=== PATIENT | female | born 1950 | race Caucasian/White ===

== ENCOUNTER 2017-06-03 08:30 | Emergency (ER) | payer OTHER, MEDICARE ==
[~2017-06-03] VITALS: Ht 175.3 cm; Wt 77.3 kg
[2017-06-03 08:33] VITALS: TEMP 36.4; Ht 175.3 cm; Wt 77.3 kg
[2017-06-03] MEDS ORDERED: IBUPROFEN 600 MG TAB PO STA (08:45)
--- NOTE | 2017-06-03 08:51 | EMERGENCY ROOM VISIT NOTE ---
History Report prepared by Ely: Marybeth Lindsey Under the Supervision of: Dr. Logan Le M.D. First contact with patient: 08:38 Chief Complaint: LEG PAIN,LEG INJURY Stated Complaint: PAIN IN RIGHT LEG History of Present Illness The patient is a 67 year old female who presents to the Emergency Room with complaints of persistent right leg pain that worsened today. She currently rates her discomfort as a 4/10 in severity. The patient states that she has a history of compressed discs and arthritis. She states that she has had problems with her right hip and right leg in the past. The patient states that this morning she woke up with increased pain in her right hip down her right leg. She states that she has noticed pain in her right shoulder down her right back. The patient states that she has been treating her discomfort with ibuprofen. The patient states that over the past four days she has been bending over and picking up her 15 month old granddaughter. She denies any weakness to her extremities. The patient just states that she has noticed difficulty supporting herself with her right leg. She denies following with an ortho-spine surgeon for her history. Source of History: patient Onset: today Position: leg (right) Symptom Intensity: 4/10 Timing: other (persistent) Modifying Factors (Relieving): ibuprofen Note: Associated Symptoms: right shoulder pain, right hip pain Review of Systems See HPI for pertinent positives & negatives. A total of 10 systems reviewed and were otherwise negative. Past Medical & Surgical Medical Problems: (1) Arthritis Surgical Problems: (1) H/O dilation and curettage (2) S/P tonsillectomy Family History Heart disease Social History Smoking Status: Never Smoker Smokeless Tobacco Use: No Alcohol Use: none Marital Status: Housing Status: lives with significant other Occupation Status: retired Current/Historical Medications Scheduled Ascorbic Acid (Vitamin C), 1 TAB PO BID Aspirin (Aspirin Ec), 81 MG PO DAILY Calcium Carbonate-Vitamin D (Calcium), 1 TAB PO DAILY Prednisone (Prednisone Tab), 0 PO DAILY Simvastatin (Zocor), 20 MG PO DAILY Scheduled PRN Fexofenadine Hcl (Esthela Allergy), 1 TAB PO DAILY PRN for Seasonal Allergies Allergies Coded Allergies: Sulfa Antibiotics (Unverified Adverse Reaction, Intermediate, ALL OVER BODY RASH, 06/03/17) Nitrofurantoin (Unverified Adverse Reaction, Unknown, UNKNOWN, 06/03/17) Physical Exam Vital Signs Date Time Temp Pulse Resp B/P (MAP) Pulse Ox O2 Delivery O2 Flow Rate FiO2 06/03/17 10:24 76 20 139/70 100 06/03/17 08:33 36.4 91 16 147/81 98 Room Air Physical Exam GENERAL: Patient is a healthy-appearing well-nourished female HEAD: Normocephalic atraumatic EYES: Ocular movements intact pupils equal and react to light OROPHARYNX mucous membranes are moist no exudates present no erythema or edema present NECK: Supple no nuchal rigidity CHEST: Good equal expansion LUNGS: Clear and equal to auscultation CARDIAC: Normal S1 and S2 ABDOMEN: Soft nontender no guarding BACK: No CVA tenderness EXTREMITIES: Full range of motion of right shoulder, right elbow, right wrist, right hip, right knee, and right ankle. Strength is 5/5 in both extremities. NEURO: Patient is following commands and answering questions appropriately. Alert and oriented x3 Cranial Nerves 2-12 grossly intact Medical Decision & Procedures ER Provider Diagnostic Interpretation: Radiology results as stated below per my review and radiologist interpretation: THORACIC SPINE WITHOUT CLINICAL HISTORY: 67 years-old Female presenting with Pt c/o Rt hip pain. TECHNIQUE: Multidetector CT of the thoracic spine was performed without the use of intravenous contrast. IV contrast: None. A dose lowering technique was used consistent with the principles of ALARA (as low as reasonably achievable). COMPARISON: None. CT DOSE (mGy.cm): The estimated cumulative dose is 2000 1443.20 inclusive of the cervical and lumbar spine.. FINDINGS: Prenatal Teacher topogram: Unremarkable. Slightly exaggerated thoracic arthrosis, although vertebral bodies maintain normal height and alignment. Intervertebral disc spaces preserved. Mild multilevel degenerative change. No significant osseous neural foraminal narrowing. No osseous spinal canal narrowing. Mild dextrocurvature of the thoracic spine. No acute osseous injury is evident. Paraspinal soft tissues within normal limits. Dependent atelectasis in the lungs. Atherosclerosis. IMPRESSION: Multilevel degenerative changes without significant osseous neural foraminal or spinal canal stenosis. Electronically signed by: Deyvi Ochoa M.D. 06/03/2017 9:31 AM Dictated Date/Time: 06/03/2017 9:28 AM LUMBAR SPINE WITHOUT CLINICAL HISTORY: 67 years-old Female presenting with Pt c/o Rt sided shoulder and hip pain. TECHNIQUE: Multidetector CT of the lumbar spine was performed without the use of intravenous contrast. IV contrast: None. A dose lowering technique was used consistent with the principles of ALARA (as low as reasonably achievable). COMPARISON: None. CT DOSE (mGy.cm): The estimated cumulative dose is 2443.[address] of the cervical and thoracic spine. FINDINGS: Prenatal Teacher topogram: Unremarkable. 8 mm of grade 1 anterolisthesis of L3 on L4, likely degenerative in etiology. Vertebral bodies otherwise maintain normal height and alignment. Intervertebral disc heights preserved. Mild disc bulges noted from L2-3 through L4-5 with the greatest degree of spinal canal stenosis resulting at L3-4. There is also significant facet hypertrophy and ligamentum flavum noted at this level, which contributes to spinal canal stenosis at L3-4. Facet arthropathy noted diffusely in the lower lumbar spine. Despite these degenerative changes only mild neural foraminal narrowing on the right at L4-5 is apparent. Transitional lumbosacral anatomy on the left at L5. Degenerative changes of the bilateral sacroiliac joints. Bone island suggested in the right ilium. Evidence of osteopenia with the L1 vertebral body demonstrating a density of approximate 90 Hounsfield units. Paraspinal soft tissues within normal limits. Atherosclerosis noted. IMPRESSION: 1. Multilevel degenerative changes including 8 mm of grade 1 anterolisthesis of L3 on L4. Spinal canal stenosis results at L3-4. Mild right neural foraminal narrowing at L4-5. Additional changes as above. 2. Osteopenia. Electronically signed by: Deyvi Ochoa M.D. 06/03/2017 9:36 AM Dictated Date/Time: 06/03/2017 9:[address] OF THE CERVICAL SPINE WITHOUT CONTRAST CLINICAL HISTORY: Right shoulder pain. COMPARISON STUDY: No previous studies for comparison. TECHNIQUE: Helical axial images of the cervical spine were obtained without IV contrast. Sagittal and coronal reconstructions were viewed. A dose lowering technique was utilized adhering to the principles of ALARA. FINDINGS: Alignment of the cervical spine is anatomic. Vertebral body heights are maintained. There is no fracture or suspicious lesion within the cervical spine by CT. There is no prevertebral edema. Craniocervical junction is intact. Severe multilevel facet arthrosis is present. There is mild multilevel endplate osteophytosis of the cervical spine. Central canal and neural foramen are suboptimally assessed by CT. However, the central canal appears grossly patent. IMPRESSION: 1. No acute cervical spine fracture or subluxation. 2. Severe multilevel facet arthrosis and mild multilevel degenerative disc disease of the cervical spine. Suboptimal evaluation of the central canal and neural foramen given CT technique. However, no evidence for significant central canal stenosis. Suspected multilevel neural foraminal stenosis predominantly due to facet arthrosis. Electronically signed by: Obi Jenkins M.D. 06/03/2017 9:36 AM Dictated Date/Time: 06/03/2017 9:32 AM Medications Administered Medications (Trade) Dose Ordered Sig/Myia Route Start Time Stop Time Status Last Admin Dose Admin Prednisone (PredniSONE TAB) 60 mg NOW STAT PO 06/03/17 08:45 06/03/17 08:48 DC 06/03/17 09:02 60 MG Ibuprofen (Motrin Tab) 600 mg NOW STAT PO 06/03/17 08:45 06/03/17 08:48 DC 06/03/17 09:02 600 MG ED Course 0841: Past medical records reviewed. The patient was evaluated in room B10. A complete history and physical examination was performed. 0845: Ordered Ibuprofen 600 mg PO, Prednisone 60 mg PO. 0945: I reevaluated the patient and she is resting. I discussed the exam findings with her and I discussed the treatment plan. She verbalized complete understanding and agreement. She is ready to go home shortly. Medical Decision Differential diagnosis: Etiologies such as fracture, dislocation, neurovascular compromise, compartment syndrome, soft tissue injury, as well as others were entertained. This is a 67-year-old female who presents emergency department complaining of right shoulder and right hip pain. Patient was given prednisone in the emergency department. The patient does have a history of this however not to this severity. She is able to walk on her tiptoes as well as her heels and has not lost control of her bowel or bladder. The patient was also given ibuprofen in the emergency department. based on the patient's CAT scans I do feel that the patient is most likely suffered from spinal stenosis. She does admit to watching her granddaughter and was doing a large amount of heavy twisting and lifting. Based on these findings as well as the CAT scan I do believe that the patient can be safely discharged home. Patient and were in agreement with the treatment plan to follow-up with orthopedics. Medication Reconcilliation Current Medication List: was personally reviewed by me Blood Pressure Screening Patient's blood pressure: Elevated blood pressure Blood pressure disposition: Referred to PCP Impression Primary Impression: Shoulder pain, right Additional Impression: Leg pain, right Scribe Attestation The scribe's documentation has been prepared under my direction and personally reviewed by me in its entirety. I confirm that the note above accurately reflects all work, treatment, procedures, and medical decision making performed by me. Departure Information Dispostion Home / Self-Care Prescriptions Prednisone (Prednisone Tab) 20 Mg Tab 0 PO DAILY, #7 TAB 2 TABS DAILY FOR 2 DAYS, THEN 1 TAB DAILY FOR 2 DAYS, THEN 1/2 TAB DAILY FOR 2 DAYS. Prov: Logan Le MD 06/03/17 Referrals Ginger Burton M.D. (PCP) Jermaine Ballard, DO Forms HOME CARE DOCUMENTATION FORM, IMPORTANT VISIT INFORMATION, School Instructions, Work Instructions Patient Instructions Basics Back Healthy Spine, ED Exercises Lumbar Muscles, MISS About, MISS Tx, My [facility], XLIF About, XLIF Tx Additional Instructions Follow up with DR Ballard's office You were found to have an elevated blood pressure today (>120 sytolic or >90 diastolic). Per medicare guidelines, you need to follow up with this blood pressure screening with your Primary Care Physician (PCP). For a new PCP call [phone]. Take 800 mg Ibuprofen every 8 hours. take with food to avoid GI disturbance You have been examined and treated today on an emergency basis only. This is not a substitute for, or an effort to provide, complete comprehensive medical care. It is impossible to recognize and treat all injuries or illnesses in a single emergency department visit. It is therefore important that you follow up closely with Dr Burton. Call as soon as possible for an appointment. Thank you for your time and consideration. I look forward to speaking with you again soon. Please don't hesitate to call us if you have any questions. Problem Qualifiers Primary Impression: Shoulder pain, right Chronicity: acute Qualified Codes: M25.511 - Pain in right shoulder
[2017-06-03] MEDS ORDERED: SIMV20TA2 PO (08:54)
[2017-06-03] MEDS ORDERED: CALC-51 PO (08:54)
[2017-06-03] MEDS ORDERED: ASPI81TA28 PO (08:54)
[2017-06-03] MEDS ORDERED: ASCO500T3 PO (08:54)
[2017-06-03] MEDS ORDERED: FEXO1TAB49 PO (08:54)
--- NOTE | 2017-06-03 09:32 | DIAGNOSTIC IMAGING REPORT ---
THORACIC SPINE WITHOUT CLINICAL HISTORY: 67 years-old Female presenting with Pt c/o Rt hip pain. TECHNIQUE: Multidetector CT of the thoracic spine was performed without the use of intravenous contrast. IV contrast: None. A dose lowering technique was used consistent with the principles of ALARA (as low as reasonably achievable). COMPARISON: None. CT DOSE (mGy.cm): The estimated cumulative dose is 2000 1443.20 inclusive of the cervical and lumbar spine.. FINDINGS: Anesthesiologist And Critical Care topogram: Unremarkable. Slightly exaggerated thoracic arthrosis, although vertebral bodies maintain normal height and alignment. Intervertebral disc spaces preserved. Mild multilevel degenerative change. No significant osseous neural foraminal narrowing. No osseous spinal canal narrowing. Mild dextrocurvature of the thoracic spine. No acute osseous injury is evident. Paraspinal soft tissues within normal limits. Dependent atelectasis in the lungs. Atherosclerosis. IMPRESSION: Multilevel degenerative changes without significant osseous neural foraminal or spinal canal stenosis. Electronically signed by: Deyvi Ochoa M.D. 06/03/2017 9:31 AM Dictated Date/Time: 06/03/2017 9:28 AM
--- NOTE | 2017-06-03 09:37 | DIAGNOSTIC IMAGING REPORT ---
CT OF THE CERVICAL SPINE WITHOUT CONTRAST CLINICAL HISTORY: Right shoulder pain. COMPARISON STUDY: No previous studies for comparison. TECHNIQUE: Helical axial images of the cervical spine were obtained without IV contrast. Sagittal and coronal reconstructions were viewed. A dose lowering technique was utilized adhering to the principles of ALARA. FINDINGS: Alignment of the cervical spine is anatomic. Vertebral body heights are maintained. There is no fracture or suspicious lesion within the cervical spine by CT. There is no prevertebral edema. Craniocervical junction is intact. Severe multilevel facet arthrosis is present. There is mild multilevel endplate osteophytosis of the cervical spine. Central canal and neural foramen are suboptimally assessed by CT. However, the central canal appears grossly patent. IMPRESSION: 1. No acute cervical spine fracture or subluxation. 2. Severe multilevel facet arthrosis and mild multilevel degenerative disc disease of the cervical spine. Suboptimal evaluation of the central canal and neural foramen given CT technique. However, no evidence for significant central canal stenosis. Suspected multilevel neural foraminal stenosis predominantly due to facet arthrosis. Electronically signed by: Obi Jenkins M.D. 06/03/2017 9:36 AM Dictated Date/Time: 06/03/2017 9:32 AM
--- NOTE | 2017-06-03 09:37 | DIAGNOSTIC IMAGING REPORT ---
LUMBAR SPINE WITHOUT CLINICAL HISTORY: 67 years-old Female presenting with Pt c/o Rt sided shoulder and hip pain. TECHNIQUE: Multidetector CT of the lumbar spine was performed without the use of intravenous contrast. IV contrast: None. A dose lowering technique was used consistent with the principles of ALARA (as low as reasonably achievable). COMPARISON: None. CT DOSE (mGy.cm): The estimated cumulative dose is 2443.[address] of the cervical and thoracic spine. FINDINGS: Journeyman Painter topogram: Unremarkable. 8 mm of grade 1 anterolisthesis of L3 on L4, likely degenerative in etiology. Vertebral bodies otherwise maintain normal height and alignment. Intervertebral disc heights preserved. Mild disc bulges noted from L2-3 through L4-5 with the greatest degree of spinal canal stenosis resulting at L3-4. There is also significant facet hypertrophy and ligamentum flavum noted at this level, which contributes to spinal canal stenosis at L3-4. Facet arthropathy noted diffusely in the lower lumbar spine. Despite these degenerative changes only mild neural foraminal narrowing on the right at L4-5 is apparent. Transitional lumbosacral anatomy on the left at L5. Degenerative changes of the bilateral sacroiliac joints. Bone island suggested in the right ilium. Evidence of osteopenia with the L1 vertebral body demonstrating a density of approximate 90 Hounsfield units. Paraspinal soft tissues within normal limits. Atherosclerosis noted. IMPRESSION: 1. Multilevel degenerative changes including 8 mm of grade 1 anterolisthesis of L3 on L4. Spinal canal stenosis results at L3-4. Mild right neural foraminal narrowing at L4-5. Additional changes as above. 2. Osteopenia. Electronically signed by: Deyvi Ochoa M.D. 06/03/2017 9:36 AM Dictated Date/Time: 06/03/2017 9:31 AM
[2017-06-03] MEDS ORDERED: PRED20TA2 PO (09:50)
[2017-06-03 10:24] VITALS: BP 139/70; PULSE 76; O2SAT 100
== END 2017-06-03 10:25 | disposition home or self-care (01) ==
LOC: C.EDB 08:33
DX: M25.511 Pain in right shoulder (principal); M79.651 Pain in right thigh; Z79.82 Long term (current) use of aspirin; Z79.899 Other long term (current) drug therapy